=== PATIENT | female | born 1975 | race Hispanic/Latino ===

== ENCOUNTER 2018-01-17 13:42 | Emergency (ER) | payer BC ==
--- OUTSIDE RECORDS SUMMARY | 2018-01-17 13:44 | XMS REPORT ---
:1975 Author Organization eClinicalWorks Care Team Providers Name Role Phone Aretha Tran Provider Role Unavailable Allergies, Adverse Reactions, Alerts Substance Reaction Event Type N.K.D.A. Info Not Available Non Drug Allergy Problems Problem Type Condition Code Onset Dates Condition Status Problem Irregular menses N92.6 Active Problem Menorrhagia with irregular cycle N92.1 Active Problem Morbid (severe) obesity due to E66.01 Active excess calories Problem Sebaceous cyst L72.3 Active Problem Depression with anxiety F41.8 Active Problem Anxiety F41.9 Active Problem Abnormal mammogram of right breast R92.8 Active Problem Body mass index (BMI) of 40.0-44.9 Z68.41 Active in adult Problem Thyroid dysfunction E07.9 Active Problem Type 2 diabetes mellitus with E11.21 Active diabetic nephropathy, unspecified medical terminologist insulin use status Assessment Depression with anxiety F41.8 Active Assessment Type 2 diabetes mellitus with E11.21 Active diabetic nephropathy, unspecified medical terminologist insulin use status Assessment Thyroid dysfunction E07.9 Active Problem Dressing change or removal, surgical Z48.01 Active wound Medications Medication Code Code Instructions Start End Status Dosage System Date Date [facility] 88234134216 100 MG Orally Active 1 tablet Once a day Lisinopril [facility] 78794200361 20 MG Orally Active 1 tablet Once a day Metformin HCl [facility] 82189784578 1000 MG Orally September Inactive 1 tablet Twice a day , with 2017 meals Victoza [facility] 62447478786 18 MG/3ML September Inactive not Subcutaneous 2017 Citalopram [facility] 20277251234 10 MG Orally September Active 1 tablet Hydrobromide Once a day 2017 Omeprazole [facility] 43959481194 40 MG Orally Active 1 capsule Once a day Levothyroxine [facility] 60786018659 150 MCG Orally Active 1 tablet Sodium Once a day on an empty stomach in the morning Results No Known Results Summary Purpose eClinicalWorks Submission
--- OUTSIDE RECORDS SUMMARY | 2018-01-17 13:44 | XMS REPORT ---
:1975 Author Organization eClinicalWorks Care Team Providers Name Role Phone Hilton Miner Provider Role Unavailable Allergies No Known Allergies Problems Problem Type Condition Code Onset Dates Condition Status Problem Dressing change or removal, surgical Z48.01 Active wound Problem Menorrhagia with irregular cycle N92.1 Active Problem Irregular menses N92.6 Active Problem Sebaceous cyst L72.3 Active Problem Depression with anxiety F41.8 Active Problem Anxiety F41.9 Active Problem Abnormal mammogram of right breast R92.8 Active Problem Body mass index (BMI) of 40.0-44.9 Z68.41 Active in adult Problem Thyroid dysfunction E07.9 Active Problem Type 2 diabetes mellitus with E11.21 Active diabetic nephropathy, unspecified 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 91213553433 20 MG Active 1 TABLET ORALLY ONCE DAILY Citalopram [facility] 16729526566 10 MG Orally Active 1 tablet Hydrobromide Once a day Januvia [facility] 99309133640 100 MG Active 1 TABLET ORALLY ONCE DAILY Clarinex-D [address] [facility] 37577248098 2.5-120 MG November 05November Active 1 tablet Hour Orally every 12 2017 21, hrs 2018 Azithromycin ND 81174502169 500 MG Orally November 05November 12, Active as directed Once a day 2017 2017 Fluticasone [facility] 56380033719 50 MCG/ACT November 05, Active 1 spray in Propionate Nasally Once a 2018 each day nostril Levothyroxine [facility] 64192559753 150 MCG Active 1 TABLET Sodium ORALLY ONCE DAILY Omeprazole [facility] 48432696782 40 MG Orally Active 1 capsule Once a day Results No Known Results Summary Purpose eClinicalWorks Submission
--- OUTSIDE RECORDS SUMMARY | 2018-01-17 13:44 | XMS REPORT ---
:1975 Author Organization eClinicalWorks Care Team Providers Name Role Phone Aretha Tran Provider Role Unavailable Allergies, Adverse Reactions, Alerts Substance Reaction Event Type N.K.D.A. 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 Problem Morbid (severe) obesity due to E66.01 Active excess calories Problem Depression with anxiety F41.8 Active Problem Abnormal mammogram of right breast R92.8 Active Problem Anxiety F41.9 Active Problem Sebaceous cyst L72.3 Active Assessment Sorethroat J02.9 Active Assessment Type 2 diabetes mellitus with E11.21 Active diabetic nephropathy, unspecified longterm insulin use status Assessment Body mass index (BMI) of 40.0-44.9 Z68.41 Active in adult Problem Dressing change or removal, surgical Z48.01 Active wound Medications Medication Code Code Instructions Start End Status Dosage System Date Date Omeprazole [facility] 34886671297 40 MG Orally Active 1 capsule Once a day Citalopram [facility] 09892834734 10 MG Orally Active 1 tablet Hydrobromide Once a day Levothyroxine [facility] 00029806812 150 MCG Active 1 TABLET Sodium ORALLY ONCE DAILY Januvia [facility] 40462973561 100 MG Active 1 TABLET ORALLY ONCE DAILY Soliqua [facility] 68151034653 100-33 Active 60 units UNT-MCG/ML Subcutaneous once daily Fluticasone [facility] 52589799276 50 MCG/ACT November 05, Active 1 spray in Propionate Nasally Once a 2018 each day nostril Lisinopril [facility] 85957022794 20 MG Active 1 TABLET ORALLY ONCE DAILY Clarinex-D 12 [facility] 71188070247 2.5-120 MG November 05November Active 1 tablet Hour Orally every 12 2018 21, hrs 2017 Metformin HCl [facility] 73109726031 1000 MG Orally Active 1 tablet Twice a day with a meal Results No Known Results Summary Purpose eClinicalWorks Submission
--- OUTSIDE RECORDS SUMMARY | 2018-01-17 13:44 | XMS REPORT ---
:1975 Author Organization eClinicalWorks Care Team Providers Name Role Phone Aretha Tran Provider Role Unavailable Allergies No Known Allergies Problems Problem Type Condition Code Onset Dates Condition Status Problem Irregular menses N92.6 Active Problem Menorrhagia with irregular cycle N92.1 Active Problem Morbid (severe) obesity due to E66.01 Active excess calories Problem Dressing change or removal, surgical Z48.01 Active wound Problem Sebaceous cyst L72.3 Active Problem Depression with anxiety F41.8 Active Problem Anxiety F41.9 Active Problem Abnormal mammogram of right breast R92.8 Active Problem Body mass index (BMI) of 40.0-44.9 Z68.41 Active in adult Problem Thyroid dysfunction E07.9 Active Problem Type 2 diabetes mellitus with E11.21 Active diabetic nephropathy, unspecified director long term 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
[2018-01-17 14:35] LABS: Absolute Lymphocytes (CBC) 1.5 K/uL (0.7-4.9); Absolute Monocytes 0.5 K/uL (0.1-1.3); Absolute Neutrophil 3.8 K/uL (1.8-8.0); Basophils % 1.4 % (0-1.3); Eosinophils % 2.4 % (0-4.4); Hematocrit 32.7 % (36.0-45.0); Lymphocytes % 24.5 % (15.3-44.8); MCH 25.4 pg (27.0-35.0); MPV 8.9 fL (7.6-11.3); Monocytes % 8.7 % (3.3-12.3)
[2018-01-17 14:38] LABS: Protime INR 1.04
[2018-01-17 14:58] LABS: ALT/SGPT 56 U/L (12-78); AST/SGOT 37 U/L (15-37); Albumin 3.7 g/dL (3.4-5.0); Alcohol Serum/Plasma 5 mg/dL (<3); Alkaline Phosphatase 54 U/L (45-117); BUN Blood Urea Nitrogen 10 mg/dL (7-18); Bicarbonate 26 mmol/L (21-32); Bilirubin Direct < 0.1 mg/dL (0-0.2); Bilirubin Total 0.2 mg/dL (0.2-1.0); Glucose Level 96 mg/dL (74-106); Potassium 3.9 mmol/L (3.5-5.1); Protein, Total 7.9 g/dL (6.4-8.2); Sodium Level 138 mmol/L (136-145)
[2018-01-17 15:57] LABS: Urine Blood NEGATIVE (NEG); Urine Glucose NEGATIVE (NEG); Urine Protein NEGATIVE (NEG); Urine pH 5.5 (5.0-7.0)
[2018-01-17 16:11] LABS: Barbiturates NEGATIVE (NEGATIVE); Benzodiazepines NEGATIVE (NEGATIVE); Cocaine NEGATIVE (NEGATIVE); METHAMPHETAM NEGATIVE (NEGATIVE); Methadone NEGATIVE (NEGATIVE); Opiates NEGATIVE (NEGATIVE); Phencyclidine NEGATIVE (NEGATIVE); THC Cannibis POSITIVE (NEGATIVE)
--- NOTE | 2018-01-17 19:10 | EKG ---
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
--- NOTE | 2018-01-17 20:21 | ER ---
Nurse's Notes [facility] Name: Jacquelin Saez Age: 42 yrs Sex: Female : 1975 Arrival Date: 01/17/2018 Time: 13:46 Bed 16 Private MD: Diagnosis: Depression Presentation: 01/17 13:47 Presenting complaint: EMS states: called out for SI pt who had about 14 inch kitchen em knife to side of neck, pt removed knife and called police, pt currently states, "she is worthless and feels like trash," denies HI. Transition of care: patient was not received from another setting of care. Onset of symptoms was January 17, 2018. Risk Assessment: Do you want to hurt yourself or someone else? Patient reports no desire to harm self or others. Initial Sepsis Screen: Does the patient meet any 2 criteria? No. Patient's initial sepsis screen is negative. Does the patient have a suspected source of infection? No. Patient's initial sepsis screen is negative. Care prior to arrival: None. 13:47 Method Of Arrival: EMS[facility] 13:47 Acuity: ATIYA 2 iw Triage Assessment: 13:50 General: Appears in no apparent distress. comfortable, obese, Behavior is cooperative, em crying, flat. Pain: Denies pain. 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 - Social history:: Smoking status: Patient/guardian denies using tobacco. - Ebola Screening: : Patient negative for fever greater than or equal to 101.5 degrees Fahrenheit, and additional compatible Ebola Virus Disease symptoms Patient denies exposure to infectious person Patient denies travel to an Ebola-affected area in the 21 days before illness onset No symptoms or risks identified at this time. Screenin:50 Abuse screen: Denies threats or abuse. Nutritional screening: No deficits noted. em Tuberculosis screening: No symptoms or risk factors identified. Fall Risk None identified. Assessment: 13:55 General: Appears in no apparent distress. obese, well developed, well nourished, em Behavior is cooperative, crying, flat, EMS toned out for SI gesture, knife to throat, removed item and called police, currently denies SI. Pain: Denies pain. Neuro: Level of Consciousness is awake, alert, obeys commands, Oriented to person, place, time, situation. Cardiovascular: Denies chest pain, Capillary refill < 3 seconds Patient's skin is warm and dry. Respiratory: Airway is patent Respiratory effort is even, unlabored, Respiratory pattern is regular, symmetrical. GI: Abdomen is obese. : No signs and/or symptoms were reported regarding the genitourinary system. EENT: No signs and/or symptoms were reported regarding the EENT system. Derm: Skin is intact, Skin is pink, warm \\T\\ dry. Musculoskeletal: Range of motion: intact in all extremities. 14:10 Reassessment: Patient appears in no apparent distress at this time. I agree with above iw assessment by Keegan Caceres LVN. 15:04 Reassessment: Patient appears in no apparent distress at this time. and family at em bedside, personal belongings given to , included t-shirt, shorts, bracelet, Iphone, shoes, and medications. 15:42 Reassessment: Patient appears in no apparent distress at this time. Patient and/or em family updated on plan of care and expected duration. Pain level reassessed. Patient is alert, oriented x 3, equal unlabored respirations, skin warm/dry/pink. eating dinner tray, family at bedside. 16:20 Reassessment: Patient appears in no apparent distress at this time. Patient and/or em family updated on plan of care and expected duration. Pain level reassessed. Patient is alert, oriented x 3, equal unlabored respirations, skin warm/dry/pink. Patient denies pain at this time. 17:26 Reassessment: Patient appears in no apparent distress at this time. No changes from em previously documented assessment. Patient and/or family updated on plan of care and expected duration. Pain level reassessed. Patient is alert, oriented x 3, equal unlabored respirations, skin warm/dry/pink. family at bedside, pending [facility] screener to come evaluate pt. 18:50 Reassessment: Patient appears in no apparent distress at this time. Patient and/or em family updated on plan of care and expected duration. Pain level reassessed. Patient is alert, oriented x 3, equal unlabored respirations, skin warm/dry/pink. 19:40 Reassessment: Patient appears in no apparent distress at this time. Patient and/or aa1 family updated on plan of care and expected duration. Pain level reassessed. Patient is alert, oriented x 3, equal unlabored respirations, skin warm/dry/pink. energy conservation representative from [facility] at bedside with pt. 20:10 Reassessment: Patient appears in no apparent distress at this time. Patient is alert, aa1 oriented x 3, equal unlabored respirations, skin warm/dry/pink. Ok to d/c at this time for outpatient f/u. Discussed d/c \\T\\ f/u instructions with pt \\T\\ friend; verbalizes understanding Patient states feeling better. Psych: 13:50 Subjective: Patient's mood is sad, hopeless, Delusions are denied, Hallucinations are em denied Having thoughts of suicide. Plan for suicide is knife to throat. Objective: Patient is cooperative, Speech is normal, slow, Affect is flat. Interventions: Removed personal items and placed in bag. Patient placed in hospital gown. Belonging list filled out. Suicide Risk Assessment: Sad Person Scale: Sex of patient: Female: Score 0 points. Age of patient: Score 0 point if patient falls outside of specified age parameters. Depression: Score 1 point if signs of depression are present. Previous Attempt: Score 0 point if patient has not previously attempted suicide. Substance Abuse: Score 0 point if patient does not abuse alcohol or drugs. Rational Thinking: Score 0 point if patient has rational thinking. Social Support: Score 1 point if social support is lacking and/or unavailable. Organized Plan: Score 0 if patient did not have an organized plan in place. Relationship: Score 0 point if patient has a spouse or domestic partner. Chronic Sickness: Score 1 point if patient has illness, chronic, debilitating, or severe. TOTAL POINTS: If total points are 3-4, proposed clinical action is close follow-up/consider hospitalization. Safety Checks: Personal items have been removed. Door is open. Visitors are present. Patient uses drinks wine every other day Patient uses marijuana Last use was 2 days ago. Commitment: Patient will be a voluntary commitment. Vital Signs: 13:50 BP 139 / 84; Pulse 96; Resp 16; Temp 97.8(O); Pulse Ox 99% on R/A; Weight 116.57 kg; em Height 5 ft. 3 in. (160.02 cm); Pain 0/10; 17:51 BP 134 / 71; Pulse 92; Resp 16; Temp 97.9(O); Pulse Ox 100% on R/A; Pain 0/10; em 20:05 BP 119 / 73; Pulse 88; Resp 16; Temp 99.4; Pulse Ox 100% ; lc4 13:50 Body Mass Index 45.53 (116.57 kg, 160.02 cm) em ED Course: 13:46 Patient arrived in ED. em 13:49 Cruz Barth PA is PHCP. cp 13:49 Brandyn Valdez MD is Attending Physician. cp 13:50 Patient has correct armband on for positive identification. Placed in gown. Bed in low em position. Call light in reach. Valuables inventory done. See valuables checklist. 13:50 Arm band placed on. em 14:00 Safety checks: Items removed: yes. Door open/sign placed on door: yes. Family/friend mh5 present: no. Sitter present: Yes. 14:13 Keegan Caceres LVN is Primary Nurse. em 14:15 Safety checks: Items removed: yes. Door open/sign placed on door: yes. Family/friend mh5 present: no. Sitter present: Yes. Warm blanket given. Pillow given. 14:25 Initial lab(s) drawn, by me, sent to lab. Inserted saline lock: 20 gauge in right mh5 antecubital area, using aseptic technique. Blood collected. 14:29 Acetaminophen Sent. 5 14:29 Basic Metabolic Panel Sent. 5 14:29 CBC with Diff Sent. 5 14:29 ETOH Level Sent. 5 14:30 Safety checks: Items removed: yes. Door open/sign placed on door: yes. Family/friend mh5 present: no. Sitter present: Yes. Safety checks: Items removed:. 14:30 Hepatic Function Sent. 5 14:30 PT-INR Sent. mh5 14:30 Ptt, Activated Sent. [facility] 14:30 Salicylate Sent. [facility] 14:45 Safety checks: Items removed: yes. Door open/sign placed on door: yes. Family/friend mh5 present: yes. Sitter present: Yes. 15:00 Safety checks: Items removed: yes. Door open/sign placed on door: yes. Family/friend mh5 present: yes. Sitter present: Yes. 15:13 Triage completed. 15:15 Safety checks: Items removed: yes. Door open/sign placed on door: yes. Family/friend mh5 present: yes. Sitter present: Yes. 15:30 Safety checks: Items removed: yes. Door open/sign placed on door: yes. Family/friend mh5 present: yes. Family/friends encouraged to stay with patient. Sitter present: Yes. 15:45 Safety checks: Items removed: yes. Door open/sign placed on door: yes. Family/friend mh5 present: yes. Family/friends encouraged to stay with patient. Sitter present: Yes. 15:48 Urine collected: clean catch specimen, clear. [facility] 15:48 Urine Drug Screen Sent. 5 15:57 Urine --Ancillary Sent. 5 15:57 Urine Dipstick-Ancillary Sent. 5 15:57 Urine --Ancillary (enter results) Sent. 5 15:57 Urine Dipstick--Ancillary (enter results) Sent. [facility] 16:00 Safety checks: Items removed: yes. Door open/sign placed on door: yes. Family/friend mh5 present: yes. Family/friends encouraged to stay with patient. Sitter present: Yes. 16:03 Diet: Patient given a regular meal tray. [facility] 16:15 Safety checks: Items removed: yes. Door open/sign placed on door: yes. Family/friend mh5 present: yes. Sitter present: Yes. 16:30 Safety checks: Items removed: yes. Door open/sign placed on door: yes. Family/friend mh5 present: yes. Family/friends encouraged to stay with patient. Sitter present: Yes. 16:45 Safety checks: Items removed: yes. Door open/sign placed on door: yes. Family/friend mh5 present: yes. Family/friends encouraged to stay with patient. Sitter present: Yes. 17:00 Safety checks: Items removed: yes. Door open/sign placed on door: yes. Family/friend mh5 present: yes. Sitter present: Yes. 17:10 Diet: Patient given a regular meal tray. mh5 17:15 Safety checks: Items removed: yes. Door open/sign placed on door: yes. Family/friend mh5 present: yes. Sitter present: Yes. 17:30 Safety checks: Items removed: yes. Door open/sign placed on door: yes. Family/friend mh5 present: no. Sitter present: Yes. 17:45 Safety checks: Items removed: yes. Door open/sign placed on door: yes. Family/friend mh5 present: yes. Sitter present: Yes. 18:00 Safety checks: Items removed: yes. Door open/sign placed on door: yes. Family/friend mh5 present: yes. Sitter present: Yes. 18:15 Safety checks: Items removed: yes. Door open/sign placed on door: yes. Family/friend mh5 present: yes. Sitter present: Yes. 18:30 Safety checks: Items removed: yes. Door open/sign placed on door: yes. Family/friend mh5 present: yes. Family/friends encouraged to stay with patient. Sitter present: Yes. 18:45 Safety checks: Items removed: yes. Door open/sign placed on door: yes. Family/friend mh5 present: yes. Sitter present: Yes. 19:00 Safety Checks: Personal items have been removed. The door is open or patient has been lc4 placed in a hallway bed/chair. A family member and/or friend is present and encouraged to stay. Sitter present at this time. 19:15 Safety Checks: Personal items have been removed. The door is open or patient has been lc4 placed in a hallway bed/chair. A family member and/or friend is present and encouraged to stay. Sitter present at this time. 19:30 Safety Checks: Personal items have been removed. The door is open or patient has been lc4 placed in a hallway bed/chair. A family member and/or friend is present and encouraged to stay. Sitter present at this time. 19:45 Safety Checks: Personal items have been removed. The door is open or patient has been lc4 placed in a hallway bed/chair. A family member and/or friend is present and encouraged to stay. Sitter present at this time. 20:00 Safety Checks: Personal items have been removed. The door is open or patient has been lc4 placed in a hallway bed/chair. A family member and/or friend is present and encouraged to stay. Sitter present at this time. 20:10 No provider procedures requiring assistance completed. IV discontinued, intact, aa1 bleeding controlled, No redness/swelling at site. Pressure dressing applied. 20:15 Safety Checks: Personal items have been removed. The door is open or patient has been lc4 placed in a hallway bed/chair. A family member and/or friend is present and encouraged to stay. Sitter present at this time. 20:30 Safety Checks: Personal items have been removed. The door is open or patient has been lc4 placed in a hallway bed/chair. A family member and/or friend is present and encouraged to stay. Sitter present at this time. Administered Medications: No medications were administered Outcome: 20:20 Discharge ordered by . cp 20:35 Discharged to home ambulatory, with friend. aa1 20:35 Condition: good 20:35 Discharge instructions given to patient, friend, Instructed on discharge instructions, follow up and referral plans. Demonstrated understanding of instructions, follow-up care. 20:40 Patient left the ED. aa1 Signatures: Jyotsna Rios RN RN aa1 Keegan Caceres, PAD CUTTER PAD CUTTER em Geovanna Medley RN RN iw Page, Corey, Emilee Reed cp [facility] Rita Ascencio lc4 Corrections: (The following items were deleted from the chart) 19:16 19:14 Safety Checks: Personal items have been removed. The door is open or patient has lc4 been placed in a hallway bed/chair. A family member and/or friend is present and encouraged to stay. Sitter present at this time. lc4
== END 2018-01-17 20:40 | disposition home or self-care (01) ==
LOC: ER 13:42
DX: F32.9 Major depressive disorder, single episode, unspecified (principal); I10 Essential (primary) hypertension; E03.9 Hypothyroidism, unspecified; E11.9 Type 2 diabetes mellitus without complications
CPT/HCPCS: 36415; 80048; 80076; 80307; 80320; 80329; 81003; 81025; 85025; 85610; 85730; 93005; 99284